=== PATIENT | female | born 1985 | race Hispanic/Latino ===

== ENCOUNTER 2019-03-31 16:41 | Emergency (ER) | payer OTHER ==
[2019-03-31] MEDS ORDERED: DICYCLOMINE HCL 10 MG/ML 2ML AMP IM ONE (17:23)
[2019-03-31] MEDS ORDERED: SIMETHICONE 80 MG TAB.CHEW ONE (17:23)
[2019-03-31] MEDS ORDERED: ONDANSETRON ODT 4 MG TAB ONE (17:23)
== END 2019-03-31 18:17 | disposition home or self-care (01) ==
LOC: EDH 16:41
DX: R11.10 Vomiting, unspecified (principal); R50.9 Fever, unspecified; R19.7 Diarrhea, unspecified; Z98.51 Tubal ligation status; Z72.0 Tobacco use
CPT/HCPCS: 96372; 99283; J0500

== ENCOUNTER 2019-07-29 11:34 | Emergency (ER) | payer MEDICAID, OTHER | END 2019-07-29 12:28 | disposition home or self-care (01) | LOC: EDH 11:34 | DX: H60.8X1 Other otitis externa, right ear (principal); Z72.0 Tobacco use ==